=== PATIENT | female | born 1995 | race Caucasian/White ===

== ENCOUNTER 2024-04-22 16:36 | Emergency (ER) | payer OTHER, SELFPAY ==
[2024-04-22 17:06] VITALS: BP 128/80; PULSE 96; RESP 16; TEMP 36.6; O2SAT 100; BMI 38.1
--- NOTE | 2024-04-22 17:07 | ED.GENADULT ---
HPI - General Adult General Chief complaint: Upper Respiratory Symptoms Stated complaint: flu Time Seen by Provider: 04/22/24 18:42 Source: patient Mode of arrival: ambulatory Limitations: no limitations History of Present Illness ED Provider: verna NEGRETE narrative: Patient is a 28-year-old female presenting to the ED with 2 days of sore throat, cough, subjective fevers, body aches. is sick with similar symptoms. She denies chest or abdominal pain. Denies nausea, vomiting, diarrhea. MD complaint: body aches Onset (ago): day(s) Treatments prior to arrival: none Related Data Allergies Allergy/AdvReac Type Severity Reaction Status Date / Time No Known Allergies Allergy Verified 04/22/24 17:08 Review of Systems Review of Systems: as per HPI Yes all other systems are reviewed and are negative Constitutional: Constitutional: Reports as per HPI Physical Exam ED Vital Signs: Vital Signs - 24 hr 04/22/24 17:06 Temperature 98 F Pulse Rate 96 Respiratory Rate 16 Blood Pressure 128/80 Pulse Oximetry 100 Oxygen Delivery Method Room Air BMI result Body Mass Index 38.1 Vital signs have been reviewed and appear to be correct. Blood pressure normal. Heart rate normal. Respiratory rate normal. Temperature normal. Oxygen saturation normal. Const General: cooperative, healthy appearing and no acute distress Orientation/consciousness: oriented to person, oriented to place, oriented to time and patient oriented x3 Limitations: no limitations HENMT Head: Yes normocephalic and Yes atraumatic Ears: external ears normal General nose exam: Normal external nose present Face and sinus: Yes face symmetric Mouth: oropharynx normal and moist mucous membranes Throat: Yes uvula midline Eyes Pupils: Equal, round and reactive pupils present Neck Neck: Yes normal visual inspection and Yes supple Resp Effort & Inspection: normal respiratory effort and able to speak in complete sentences Auscultation: clear to auscultation bilaterally Cardio Rate: regular rate Rhythm: regular rhythm Heart sounds: S1 normal heart sound present and S2 normal heart sound present GI Palpation (GI): Soft to palpation and nontender Auscultation: normoactive bowel sounds General: Yes no CVA tenderness Back/Spine/Pelvis Back: no CVA tenderness Skin General skin exam: elasticity normal and turgor normal Neuro General: oriented to person, oriented to place, oriented to time, patient oriented x3, moves all extremities, no focal motor deficits and CN's II-XI intact bilaterally Cranial nerves: Yes Equal, round and reactive pupils present Cognition (Neuro): normal cognition Extrem General: Yes full ROM, Yes no pedal edema and Yes no calf tenderness Psych Mental Status: mental status grossly normal Affect: normal affect Thought process: Normal thought process present Medical Decision Making Medical Decision Making [facility] Narrative: Patient is a 28-year-old female presenting to the ED with 2 days of sore throat, cough, subjective fevers, body aches. On exam patient is awake, A+Ox3, VS WNL, afebrile, normal neurological exam without focal deficits, physical exam findings as above. Given reported symptoms and physical exam findings, initial differential includes viral illness, strep pharyngitis, COVID, flu, RSV. Viral and strep swabs negative. Patient updated on results. Discussed with patient that symptoms are likely due to viral illness. Recommended Tylenol and ibuprofen as needed, follow up with PCP. Return precautions discussed. Patient verbalized understanding of and agreement with plan. Differential Diagnosis Differential Diagnoses: The differential diagnosis associated with the presentation includes As per [facility] Lab Data [facility] Lab Attestation statement: I reviewed the patient's lab results. As per [facility] Labs: Lab Results 04/22/24 Range/Units 17:44 Influenza Type A (PCR) NEGATIVE (Negative) Influenza Type B (PCR) NEGATIVE (Negative) RSV RNA Qual (PCR) NEGATIVE (Negative) SARS-CoV-2 RNA (RT-PCR) NEGATIVE (Negative) S. pyogenes GrpA RODNEY Negative (Negative) External Record Review External record reviewed: Inpatient record, Office record and Outpatient record Discharge Plan Discharge Clinical Impression: Upper respiratory infection, viral Patient Disposition: Home, Self-Care Instructions: Viral Syndrome (ED), Upper Respiratory Infection (DC) Additional Instructions: You were evaluated in the emergency department today for sore throat and cough. Your Covid, flu, RSV, and strep tests were all negative. Your symptoms are likely related to a viral illness which will resolve on its own with time and rest. You should ensure adequate fluid intake, and can use Tylenol 650 mg or ibuprofen 600 mg every 6 hours as needed for fever or discomfort. Please follow-up with your primary care provider this week. Return to the emergency department if you develop chest pain, worsening shortness of breath, difficulty swallowing, fever 100.4? F or greater or any other concerning symptoms. Print Language: Divehi
[2024-04-22 18:13] LABS: IDNOW Serial# 08D9AD1C; Strep A Nucleic Acid Negative (Negative)
[2024-04-22 18:26] LABS: Influenza A PCR NEGATIVE (Negative); Influenza B PCR NEGATIVE (Negative); Resp Syncy Virus RNA Qual PCR NEGATIVE (Negative); SARS COV2 PCR INHOUSE NEGATIVE (Negative)
[2024-04-22 19:04] VITALS: BP 128/80; PULSE 96; RESP 16; TEMP 36.6; O2SAT 100
== END 2024-04-22 19:07 | disposition home or self-care (01) ==
LOC: HO.ED 19:06
PROVIDERS: Registered Nurse Emergency; Emergency Provider Emergency Medicine; PCP Internal Medicine
DX: J06.9 Acute upper respiratory infection, unspecified (principal); J02.9 Acute pharyngitis, unspecified; R05.9 Cough, unspecified; Z03.818 Encounter for observation for suspected exposure to other biological agents ruled out
CPT/HCPCS: 0241U; 87651; 99282; 99283

== ENCOUNTER 2024-04-28 07:16 | Outpatient (AMB) | payer OTHER, SELFPAY ==
[2024-04-28 07:43] VITALS: BP 116/80; BMI 36.9
--- NOTE | 2024-04-28 07:43 | MHC.PC.OV ---
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 Accompanied by: Spouse Allergies No Known Allergies Allergy (Verified 04/28/24 07:52) Medication List - Last Reconciled 04/28/24 by Aline Mackenzie MD famotidine (Pepcid) 20 mg PO DAILY Tobacco use date assessed: 04/28/24 Dental Screening Dental Screen Date: 04/28/24 Did you have a dental visit in the last 12 months?: Yes Did you have a dental problem in the last 6 months where you did not have access to dental care?: No Was dental information given to patient?: Patient has dentist HPI HPI Comments History of Present Illness Details This is a 28-year-old female with mild intermittent asthma, chronic GERD and obesity that comes to establish care accompanied by significant other. She has not use a rescue inhaler in over 3 years. GERD stable with famotidine. She is obese with a BMI of 36.9 and has tried diet and exercise with no significant relieved. I will start her on Wegovy if insurance approves. BMI goal is less than 30. [facility] Surgical History History of cholecystectomy Family History Mother No problems noted. Father No problems noted. Social History Housing: Apartment Alcohol intake: never Patient Tobacco Use Status: Never used Tobacco e-Cigarette/Vaping Use: Never Used Second Hand Smoke Exposure: No service: No Current occupational status: employed Current occupational exposures/hazards: No Cognitive needs: No Hearing needs: No Vision needs: Yes Questionnaire PHQ-9 Over the last 2 weeks, how often have you been bothered by any of the following problems? 1. Little interest or pleasure in doing things: not at all 2. Feeling down, depressed, or hopeless: not at all 3. Trouble falling or staying asleep, or sleeping too much: not at all 4. Feeling tired or having little energy: not at all 5. Poor appetite or overeating: not at all 6. Feeling bad about yourself - or that you are a failure or have let yourself or your family down: not at all 7. Trouble concentrating on things, such as reading the newspaper or watching television: not at all 8. Moving or speaking so slowly that other people could have noticed. Or the opposite - being so fidgety or restless that you have been moving around a lot more than usual: not at all 9. Thoughts that you would be better off or of hurting yourself in some way: not at all Total score: 0 Depression Screening Interpretation: Negative Depression Screening Done: Yes 05371 - PHQ-9 Billing: Yes Source: Developed by Drs. Antony Martin, Paulette Lopez, Jossue Ricks and colleagues, with an educational tomasa from [employer]. Thrive Questionnaire Date Thrive assessed: 04/28/24 I am a: Patient What is your living situation today?: I have a steady place to live Within the past 12 months, did the food you bought not last and you didn't have the money to get more?: Never true Within the past 12 months, did you worry whether your food would run out before you got money to buy more?: Never true Do you have trouble paying for medicines?: No Do you have trouble getting transportation to medical appointments?: No Do you have trouble paying your heating and electricity bill?: No Do you have trouble taking care of your child, family member or friend?: No Do you have trouble with day-to-day activities such as bathing, preparing meals, shopping, managing finances, etc.?: No Are you currently unemployed and looking for a job?: No Are you interested in more education?: No Please select the resources that you would like help with: None Currently or been in a relationship where the following occur: No concerns reported THRIVE Score: 0 AUDIT C Alcohol Use Questionnaire (AUDIT-C) 1. How often do you have a drink containing alcohol?: Never Total Score: 0 Score Reviewed/Action Taken: No JANICE-7 AMB Questionnaire JANICE-7 Date JANICE - 7 assessed: 04/28/24 Feeling nervous, anxious, or on edge: 1 = Several days Not being able to stop or control worryin = Not at all Worrying too much about different things: 2 = More than half the days Trouble relaxin = Not at all Being so restless that it is hard to sit still: 0 = Not at all Becoming easily annoyed or irritable: 1 = Several days Feeling afraid as if something awful might happen: 0 = Not at all Total JANICE-7 score (0-4 normal; 5-9 mild; 10-14 moderate; 15-21 severe): 4 Source: Developed by Drs. Antony Martin, Paulette Lopez, Jossue Ricks and colleagues, with an educational tomasa from [employer]. JANICE-7 Assessment Billing JANICE-7 Assessment Tool: JANICE-7 Assessment 70737 Review of Systems Const All systems reviewed & are unremarkable except as noted in HPI and below Card Denies chest pain at rest, Denies chest pain with activity, Denies edema, Denies irregular heart rhythm, Denies claudication, Denies dyspnea, Denies dyspnea on exertion, Denies orthopnea, Denies paroxysmal nocturnal dyspnea and Denies slow heart rate Resp Denies cough, Denies dyspnea and Denies dyspnea on exertion GI Denies abdominal pain, Denies change in bowel habits, Denies excessive flatus, Denies nausea and Denies vomiting Physical exam (Primary Care) Vital Signs: Last Vital Signs BP 116/80 04/28/24 07:43 BMI result Body Mass Index 36.9 Tobacco/Smoking Status: Tobacco use Status Tobacco use date assessed 04/28/24 04/28/24 07:51 Patient Tobacco Use Status Never used Tobacco 04/28/24 07:51 e-Cigarette/Vaping Use Never Used 04/28/24 07:51 PHQ-9: PHQ-9 Score PHQ-9: Total score 0 04/28/24 07:54 Depression Screening Interpretation: Negative Thrive Assessment: Date of Thrive Assessment Date Thrive assessed 04/28/24 04/28/24 07:51 Currently or been in a relationship where the following occur: No concerns reported Resp Effort & Inspection: normal respiratory effort Auscultation: clear to auscultation bilaterally Cardio Jugular venous distension: no JVD Rate: regular rate Rhythm: regular rhythm Heart sounds: S1 normal heart sound present and S2 normal heart sound present Extrem General: Yes full ROM Immunizations Boostrix Tdap 2.5 Lf unit-8 mcg-5 Lf/0.5 mL intramuscular syringe Performing Provider: Aline Mackenzie MD [facility] Administered by: TEX Gaffney on 04/28/24 08:10 Dose Route Admin Location Dispensed Lot Number Expiration Date NDC Director Broadcast 0.5 mL IM Left Deltoid 0.5 mL [id number] 06/10/26 35679-063-57 [employer] VIS Given Date VIS Provided VIS Publication Date 04/28/24 Single Vaccine 21 Eligibility Eligibility Date Funding Source Not [facility] Eligible 04/28/24 Private Assessment and Plan Assessment & Plan (1) Class 2 obesity with body mass index (BMI) of 36.0 to 36.9 in adult: Code(s): E66.9 - Obesity, unspecified; Z68.36 - Body mass index [BMI] 36.0-36.9, adult Plan: Start Wegovy. BMI goal is less than 30. (2) Chronic GERD: Code(s): K21.9 - Gastro-esophageal reflux disease without esophagitis Plan: Continue famotidine. (3) Mild intermittent asthma in adult without complication: Code(s): J45.20 - Mild intermittent asthma, uncomplicated Plan: Use rescue inhaler as needed. Orders: Orders Thyroid Stimulating Hormone Today E66.9 - Obesity, unspecified, Z68.36 - Body mass index [BMI] 36.0-36.9, adult Lipid Panel Today E66.9 - Obesity, unspecified, Z68.36 - Body mass index [BMI] 36.0-36.9, adult Comprehensive Panther. Panel Fast Today E66.9 - Obesity, unspecified, Z68.36 - Body mass index [BMI] 36.0-36.9, adult Complete Blood Count Auto Diff Today E66.9 - Obesity, unspecified, Z68.36 - Body mass index [BMI] 36.0-36.9, adult TDaP Immunization Today Z23 - Encounter for immunization Referrals DIRECTOR OF BUSINESS SYSTEMS Referral Z12.4 - Encounter for screening for malignant neoplasm of cervix Medications: New semaglutide (weight loss) (Wegovy) administer weeks 1 through 4 of therapy 0.25 mg (0.5 mL) subcut QWEEK 4 weeks 2 mL 0RF E66.9 - Obesity, unspecified, Z68.36 - Body mass index [BMI] 36.0-36.9, adult famotidine (Pepcid) 20 mg PO DAILY 90 days 90 tabs 1RF K21.9 - Gastro-esophageal reflux disease without esophagitis Ventolin HFA 90 mcg/actuation (albuterol sulfate) 2 puffs inhalation Q6H 30 days PRN 8 grams 1RF shortness of breath or wheezing NS J45.20 - Mild intermittent asthma, uncomplicated Coding Level of Care Code New Pt Level 3 (42395) Complex EM visit Add On G2211 Diagnoses Class 2 obesity with body mass index (BMI) of 36.0 to 36.9 in adult E66.9; Z68.36 Chronic GERD K21.9 Mild intermittent asthma in adult without complication J45.20 Additional Codes JANICE-7 Assessment Billing - JANICE-7 Assessment Tool: JANICE-7 Assessment 58257 ([id number]) Time Spent (min) 19
== END 2024-04-28 08:11 | disposition home or self-care (01) ==
PROVIDERS: PCP Internal Medicine; Visit Provider Internal Medicine
DX: K21.9 Gastro-esophageal reflux disease without esophagitis (principal); E66.9 Obesity, unspecified; Z68.36 Body mass index [BMI] 36.0-36.9, adult; Z23 Encounter for immunization; J45.20 Mild intermittent asthma, uncomplicated
CPT/HCPCS: 90471; 90715; 99203

== ENCOUNTER 2024-04-28 08:34 | Outpatient (REF) | payer OTHER, SELFPAY ==
[2024-04-28 08:46] LABS: MANUAL DIFF FLAG NO
[2024-04-28 09:28] LABS: Basophils Percent Auto 0.4 % (0-2); Eosinophils Absolute Auto 0.2 X10*3/uL (0.0-0.4); Hematocrit 45.2 % (37.0-47.0); Hemoglobin 15.4 g/dl (12.0-16.0); Imm Gran Abs Auto 0.04 X10*3/uL (0.00-0.03); Imm Gran Pct Auto 0.5 % (0.0-0.4); Lymphocytes Absolute Auto 2.6 X10*3/uL (1.2-4.9); Lymphocytes Percent Auto 32.7 % (20-40); Mean Corpuscular HGB Conc 34.1 g/dl (31.0-35.0); Mean Corpuscular Hemoglobin 30.3 pg (27.0-33.0); Mean Corpuscular Volume 88.8 fL (80.0-98.0); Mean Platelet Volume 10.4 fL (9.4-12.3); Monocytes Absolute Auto 0.8 X10*3/uL (0.1-1.2); Monocytes Percent Auto 9.6 % (2-11); Neutrophils Absolute Auto 4.4 x10*3/uL (2.0-8.3); Neutrophils Percent Auto 54.8 % (45-73); Platelet Count 276 X10*3/uL (160-400); Red Blood Count 5.09 X10*6/uL (4.20-5.50); Red Cell Distribution Width 12.3 % (11.0-16.0)
[2024-04-28 09:53] LABS: Alanine Aminotransferase 40 U/L (0-31); Albumin Level 4.6 g/dL (3.5-5.0); Alkaline Phosphatase 66 U/L (39-117); Anion Gap 10 (12-20); Aspartate Amino Transferase 24 U/L (5-31); Bilirubin Total 0.4 mg/dL (0.0-1.0); Blood Urea Nitrogen 12 mg/dL (9-16); Calcium 10.3 mg/dL (8.4-10.2); Carbon Dioxide 29 mmol/L (22-29); Chloride 105 mmol/L (96-108); Cholesterol 152 mg/dL (<200); Estimated Glomerular Filt Rate > 60; Glucose Fasting 92 mg/dL (60-99); HDL Cholesterol 45 mg/dL (>40); LDL Cholesterol Calculated 83 mg/dL (<100); Potassium 4.3 mmol/L (3.3-5.1); Sodium 140 mmol/L (135-145); Total Protein 7.8 g/dL (6.5-8.0); Triglycerides 124 mg/dL (<150)
[2024-04-28 10:09] LABS: Thyroid Stimulating Hormone 2.21 uIU/mL (0.32-4.0)
== END 2024-04-28 08:35 | disposition home or self-care (01) ==
LOC: HO.LAB 08:34
PROVIDERS: PCP Internal Medicine; Visit Provider Internal Medicine
DX: E66.9 Obesity, unspecified (principal); Z68.36 Body mass index [BMI] 36.0-36.9, adult
CPT/HCPCS: 36415; 80053; 80061; 84443; 85025

== ENCOUNTER 2025-01-12 15:54 | Outpatient (AMB) | payer BC, SELFPAY ==
--- NOTE | 2025-01-12 16:06 | MHC.PC.OV ---
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 by: Self / Same As Patient Allergies No Known Allergies Allergy (Verified 01/12/25 16:12) Medication List - Last Reconciled 01/12/25 by Aline Mackenzie MD No Known Home Meds Tobacco use date assessed: 01/12/25 Dental Screening Dental Screen Date: 01/12/25 Did you have a dental visit in the last 12 months?: Yes Did you have a dental problem in the last 6 months where you did not have access to dental care?: No Was dental information given to patient?: Patient has dentist HPI HPI Comments History of Present Illness Details The patient is a 29-year-old female presenting with a concern regarding her left foot. 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 It was described as being embedded in the bone, necessitating an excision where a portion was removed through creating a hole. Although initial relief was achieved, symptoms have continually recurred since July. She verified she has not consulted a specialist since enrolling in a new insurance plan as of September. The patient seeks evaluation due to the resurfacing of symptoms following the prior surgical intervention. - Tetanus vaccination administered last year; next dose due in 2023 - Discussion on the importance of regular exercise [facility] Surgical History (Updated 01/12/25 @ 16:16 by Aline Mackenzie MD) History of foot surgery History of cholecystectomy Family History Mother No problems noted. Father No problems noted. Social History Housing: Apartment Alcohol intake: never Patient Tobacco Use Status: Never used Tobacco e-Cigarette/Vaping Use: Never Used Second Hand Smoke Exposure: No service: No Current occupational status: employed Current occupational exposures/hazards: No Cognitive needs: No Hearing needs: No Vision needs: Yes Questionnaire PHQ-9 Over the last 2 weeks, how often have you been bothered by any of the following problems? 1. Little interest or pleasure in doing things: not at all 2. Feeling down, depressed, or hopeless: not at all 3. Trouble falling or staying asleep, or sleeping too much: not at all 4. Feeling tired or having little energy: not at all 5. Poor appetite or overeating: not at all 6. Feeling bad about yourself - or that you are a failure or have let yourself or your family down: not at all 7. Trouble concentrating on things, such as reading the newspaper or watching television: not at all 8. Moving or speaking so slowly that other people could have noticed. Or the opposite - being so fidgety or restless that you have been moving around a lot more than usual: not at all 9. Thoughts that you would be better off or of hurting yourself in some way: not at all Total score: 0 Depression Screening Interpretation: Negative Depression Screening Done: Yes 77173 - PHQ-9 Billing: Yes Source: Developed by Drs. Antony Martin, Paulette Lopez, Jossue Ricks and colleagues, with an educational tomasa from [employer]. Thrive Questionnaire Date Thrive assessed: 01/05/25 I am a: Patient What is your living situation today?: I have a steady place to live Within the past 12 months, did the food you bought not last and you didn't have the money to get more?: Often true Within the past 12 months, did you worry whether your food would run out before you got money to buy more?: Never true Do you have trouble paying for medicines?: I choose not to answer this question Do you have trouble getting transportation to medical appointments?: No Do you have trouble paying your heating and electricity bill?: No Do you have trouble taking care of your child, family member or friend?: No Do you have trouble with day-to-day activities such as bathing, preparing meals, shopping, managing finances, etc.?: No Are you currently unemployed and looking for a job?: No Are you interested in more education?: I choose not to answer this question Please select the resources that you would like help with: Paying for medicine Currently or been in a relationship where the following occur: No concerns reported THRIVE Score: 1 AUDIT C Alcohol Use Questionnaire (AUDIT-C) 1. How often do you have a drink containing alcohol?: Never Total Score: 0 Score Reviewed/Action Taken: No JANICE-7 AMB Questionnaire JANICE-7 Date JANICE - 7 assessed: 01/12/25 Feeling nervous, anxious, or on edge: 1 = Several days Not being able to stop or control worryin = Not at all Worrying too much about different things: 0 = Not at all Trouble relaxin = Not at all Being so restless that it is hard to sit still: 0 = Not at all Becoming easily annoyed or irritable: 0 = Not at all Feeling afraid as if something awful might happen: 0 = Not at all Total JANICE-7 score (0-4 normal; 5-9 mild; 10-14 moderate; 15-21 severe): 1 Source: Developed by Drs. Antony Martin, Paulette Lopez, Jossue Ricks and colleagues, with an educational tomasa from [employer]. JANICE-7 Assessment Billing JANICE-7 Assessment Tool: JANICE-7 Assessment 19461 Review of Systems Const All systems reviewed & are unremarkable except as noted in HPI and below Card Denies chest pain at rest, Denies chest pain with activity, Denies edema, Denies irregular heart rhythm, Denies claudication, Denies dyspnea, Denies dyspnea on exertion, Denies orthopnea, Denies paroxysmal nocturnal dyspnea and Denies slow heart rate Resp Denies cough, Denies dyspnea and Denies dyspnea on exertion GI Denies abdominal pain, Denies change in bowel habits, Denies excessive flatus, Denies nausea and Denies vomiting Denies urinary incontinence, Denies urinary hesitancy and Denies urinary urgency Musc Denies abnormal gait, Denies atrophy, Denies deformity and Denies limited range of motion Skin/Breast Denies bleeding lesions, Denies changing lesions and Denies rash Neuro Denies abnormal gait and Denies lack of coordination Physical exam (Primary Care) Vital Signs: Last Vital Signs BP 120/82 01/12/25 16:07 BMI result Body Mass Index 36.9 BMI Assessment/Plan discussion: High BMI High, discussed plan: lifestyle, weight reduction, dietary and physical activity Tobacco/Smoking Status: Tobacco use Status Tobacco use date assessed 01/12/25 01/12/25 16:10 Patient Tobacco Use Status Never used Tobacco 01/12/25 16:10 e-Cigarette/Vaping Use Never Used 01/12/25 16:10 PHQ-9: PHQ-9 Score PHQ-9: Total score 0 01/12/25 16:10 Depression Screening Interpretation: Negative Thrive Assessment: Date of Thrive Assessment Date Thrive assessed 01/05/25 01/12/25 16:10 Currently or been in a relationship where the following occur: No concerns reported [facility] Head: Yes normal to inspection, Yes normocephalic and Yes atraumatic Ears: external ears normal Eyes General: appearance normal, both eyes and all related structures Eyelids: Yes eyelids normal Conjunctivae: conjunctivae normal Neck Neck: Yes normal visual inspection and Yes supple Resp Effort & Inspection: normal respiratory effort Auscultation: clear to auscultation bilaterally Cardio Jugular venous distension: no JVD Rate: regular rate Rhythm: regular rhythm Heart sounds: S1 normal heart sound present and S2 normal heart sound present GI Inspection: Yes normal to inspection Palpation (GI): Soft to palpation and nontender Auscultation: normal bowel sounds Skin General skin exam: no rashes or lesions noted Neuro General: no focal motor deficits Extrem General: Yes full ROM Psych Appearance: grossly normal Coding Level of Care Code Est Pt Level 3 (43648) Est Pt Prev Care 18-39y(17290) Diagnoses Physical exam Z00.00 Left foot pain M79.672 Additional Codes PHQ-9 - 97148 - PHQ-9 Billing: Yes ([id number]) JANICE-7 Assessment Billing - JANICE-7 Assessment Tool: JANICE-7 Assessment 50332 ([id number]) Time Spent (min) 33 Assessment & Plan Assessment & Plan (1) Physical exam: Code(s): Z00.00 - Encounter for general adult medical examination without abnormal findings Category: Medical (2) Left foot pain: Code(s): M79.672 - Pain in left foot Category: Medical Plan The patient has been advised to see a agricultural agent for further evaluation of the left foot callus. Due to prior surgical intervention, reassessment is needed for potential more specialized care. I will assist in coordinating with the agricultural agent to schedule this follow-up appointment. As her last laboratory tests were normal, no additional tests are planned. Efforts to manage discomfort are ongoing until specialist consultation is complete. Patient was informed and verbally consented to the use of an ambient scribe for clinic note documentation during this visit. I explained to the patient the potential need for further intervention by a agricultural agent for sustained resolution of her recurrent foot issue. The previous surgery was discussed along with the possibility of recurrence requiring ongoing care. We reviewed the risks and benefits of specialist intervention and the importance of addressing the discomfort adequately. I outlined the absence of need for immediate labs given recent normal results. I encouraged exercise as part of health maintenance and highlighted the current vaccination status. It was agreed that visiting the specialist remains a priority, and her compliance with follow-up was affirmed. Orders: Referrals Podiatry Referral M79.672 - Pain in left foot Patient Instructions: - Schedule and attend an appointment with the agricultural agent for left foot evaluation - Continue regular exercise as part of health maintenance - Reach out if new symptoms or concerns develop - Reminder for follow-up vaccination in 2023
[2025-01-12 16:07] VITALS: BP 120/82; BMI 36.9
== END 2025-01-12 16:26 | disposition home or self-care (01) ==
LOC: HO.HMCH 15:54
PROVIDERS: PCP Internal Medicine; Visit Provider Internal Medicine
DX: Z00.00 Encounter for general adult medical examination without abnormal findings (principal); M79.672 Pain in left foot

== ENCOUNTER → 2025-01-12 15:54 | Outpatient (BNVA) | payer BC, SELFPAY | PROVIDERS: PCP Internal Medicine; Visit Provider Internal Medicine | DX: Z00.00 Encounter for general adult medical examination without abnormal findings (principal); M79.672 Pain in left foot; L84 Corns and callosities | CPT/HCPCS: 96127 ==

== ENCOUNTER 2025-08-03 09:13 | Outpatient (REF) | payer BC, SELFPAY ==
[2025-08-03 12:59] LABS: HBsAGNum1 0.35 S/CO (0.00-0.99); HIV Num 1 0.05 S/CO (0.00-0.99); Hepatitis B Surface Antigen Negative (Negative); Thyroid Stimulating Hormone 1.47 uIU/mL (0.32-4.0); ~HepC Num1 0.07 S/CO (0.00-0.79); ~Hepatitis C Antibody Nonreactive (Nonreactive)
[2025-08-04 05:50] LABS: Follicle Stimulating Hormone 6.5 mIU/mL
[2025-08-04 10:48] LABS: Syphilis Screen Nonreactive (Nonreactive)
[2025-08-08 11:48] LABS: Testosterone, Free 6.4 pg/mL (0.1-6.4)
== END 2025-08-03 09:14 | disposition home or self-care (01) ==
LOC: HO.HHCL 09:13
PROVIDERS: PCP Internal Medicine; Visit Provider Advanced Practice Midwife
DX: Z12.4 Encounter for screening for malignant neoplasm of cervix (principal); Z20.2 Contact with and (suspected) exposure to infections with a predominantly sexual mode of transmission; E66.9 Obesity, unspecified; N92.6 Irregular menstruation, unspecified; Z11.59 Encounter for screening for other viral diseases; Z11.4 Encounter for screening for human immunodeficiency virus [HIV]; Z87.718 Personal history of other specified (corrected) congenital malformations of genitourinary system; Z68.36 Body mass index [BMI] 36.0-36.9, adult; Z87.42 Personal history of other diseases of the female genital tract
CPT/HCPCS: 36415; 82627; 82947; 83001; 83002; 84146; 84402; 84403; 84443; 86780; 86803; 87340; 87389

== ENCOUNTER 2025-08-03 09:13 | Outpatient (AMB) | payer BC, SELFPAY ==
--- NOTE | 2025-08-03 09:13 | MHC.OFFVIS ---
Vital Signs 08/03/25 09:21 Height 5 ft 4 in Weight 215 lb BMI 36.9 BP 110/60 Intake Visit Reasons: New patient Annual/Internal Intake Note: Last pap smear 2 years ago in [place], normal hx. Last menstrual 2 years ago, occasional spotting. 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 She used to get her customer engineering specialist care when she lived in [place]. She is 29 years old she has been trying to get with no success. 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 She was told that if she does get that she has a high-risk of having a premature baby and there is also risk of miscarriages and also a possibility of a . Since she left [place] she has not been on the control pills and she has not gotten a period in 2 years. In this period of time she has also gained weight she probably was about 190 at her lowest before she left [place] and she recently was as high as 220 and now she is 215.. 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 She is sexually active she would like to get she knows that it is not good to go a long period of time without menses and she is open to taking a medication to help bring on her menses and then go back on the control pills and thought that that would be something we would talk about today. She has no history of contraindications the pills and she took them with no difficulty in the past she is normotensive and she does not smoke. she has no history of migraines with auras, history of clotting abnormalities She says she has been screened and she does not have diabetes or any other health problems She did however have some surgery on her foot a couple of years ago and then she had gallbladder surgery and she was not able to eat after the surgery and then when she recovered and felt better she started eating a lot more and that is when she started gaining all the weight. She knows that being overweight effects menses as well.. PFSH Surgical History (Updated 01/12/25 @ 16:16 by Aline Mackenzie MD) History of foot surgery History of cholecystectomy Family History (Updated 08/03/25 @ 09:18 by Anca Cordon MA) Mother No problems noted. Father No problems noted. Paternal Grandfather Colon cancer Social History Housing: Apartment Alcohol intake: never Patient Tobacco Use Status: Never used Tobacco e-Cigarette/Vaping Use: Never Used Second Hand Smoke Exposure: No service: No Current occupational status: employed Current occupational exposures/hazards: No Cognitive needs: No Hearing needs: No Vision needs: Yes Female Reproductive History Menstrual Age of Menarche: 16 control method: none Total pregnancies: 0 History of abnormal pap smear: No Physical Exam Vital Signs: Last Vital Signs BP 110/60 08/03/25 09:21 BMI result Body Mass Index 36.9 Const General: healthy appearing, comfortable, no acute distress, well developed and alert Nutritional Appearance: average body habitus Orientation/consciousness: patient oriented x3 Limitations: no limitations HEENT Head: Yes normocephalic Neck Neck: Yes normal visual inspection Chest Chest palpation & inspection: normal inspection of the chest Breast/axilla inspection: normal inspection of the breasts and normal inspection of the axillae Breast/axilla palpation: normal palpation of the breasts and normal palpation of the axillae Resp Effort & Inspection: normal respiratory effort GI Inspection: Yes normal to inspection, No Abdominal wall edema and No distended Palpation (GI): Soft to palpation and nontender Other: External exam within normal limits vagina pink and moist cervix is nulliparous pink smooth slightly reddened that os normal clear scant mucus uterus small midposition mobile nontender adnexa nontender no tenderness or enlargement palpable. Good tone with Kegel General: Yes bladder normal to palpation External Female Exam: normal external appearance and normal appearance of the urethra Speculum Exam - Vagina: normal appearance of the vagina, normal palpation and normal vaginal discharge Speculum Exam - Cervix: normal appearance of the cervix, normal palpation and nontender Bimanual exam- vagina & uterus: normal bimanual exam, normal palpation, uterine size normal, bladder normal to palpation, consistency normal, normal palpation, uterine mobility normal, uterine shape normal, No Cervical tenderness present, non-tender and no cervical motion tenderness Bimanual Exam- Adnexa, other: normal adnexae, no masses, normal and No adnexal tenderness Neuro General: patient oriented x3 Assessment & Plan Assessment & Plan (1) Class 2 obesity with body mass index (BMI) of 36.0 to 36.9 in adult: Code(s): E66.9 - Obesity, unspecified; Z68.36 - Body mass index [BMI] 36.0-36.9, adult Category: Medical (2) Screening for cervical cancer: Code(s): Z12.4 - Encounter for screening for malignant neoplasm of cervix Category: Medical (3) History of amenorrhea: Code(s): Z87.42 - Personal history of other diseases of the female genital tract Category: Medical (4) History of bicornuate uterus: Code(s): Z87.718 - Personal history of other specified (corrected) congenital malformations of genitourinary system Category: Medical (5) Screen for sexually transmitted diseases: Code(s): Z11.3 - Encounter for screening for infections with a predominantly sexual mode of transmission Category: Medical (6) History of infertility, female: Code(s): Z87.42 - Personal history of other diseases of the female genital tract Category: Medical Plan -----Discussed in this visit the following: healthy balanced diet, regular and consistent exercise, getting recommended health screens, doing the best she can for her particular health concerns, kegel exercises, pap smear screening and followup recommendations, mammography screening and SBE, normal changes in cycles in her life stage--- . ---Discussed PCOS, similar situations involving amenorrhea and infertility and being overweight, in general and specifically about the interplay of the abnormal hormonal milieu related to being overweight, with the elevations of many hormone levels, including testosterone and estrogen, as well as others that contribute to cycles that are anovulatory and therefore prolonged, and when periods do come they come very heavy, and can contribute to lots of cramping, with passage of clots and anemia. Discussed the common symptoms related to the elvated hormonal levels, including increased facial hair, male pattern hair thinning, acne, and increased central abdominal girth. Discussed the interplay with difficulty getting when desired, but still possible, and therefore the need to contracept as appropriate and when needed. Discussed the role of weight loss as the primary, most important, and most likely to succeed, intervention, in achieving healthier status as regards amenorrhea and infertility and ovulatory regular cycles. Additionally the very important relationship to elevated insulin levels, and blood sugars, and high risk of pre diabetes, progressing to diabetes as well as other metabolic syndromes related to this was discussed. Also discussed common interventions for some of the above, including if appropriate, use of oral contraceptives, and provera. We made a plan that she agreed to today to help have her get a period/withdrawal bleed with the use of 10 days of Provera. I told her to expect a very heavy menses after that and she said that she was used to that it had happened before. When the menstrualperiod after the Provera is starting to slow down that would be the best time to start the control pills I reviewed with her taking out the day of the week strip from the package and choosing the correct 1 to apply to her package so she will be kept straight from then on. We will see her in about 3 months to see how she did with the withdrawal bleed and the menses and double check her blood pressure and we will also review her labs and ultrasound at that time. In the meantime if she is able to get the results of her hysteroscopy from the place she was seen in [place] that would be really helpful. Also reviewed that we do not have a birthing center here that if she ever does become she would by definition be high-risk and require the specialty services of Maternal- Medicine at [facility] and would want to seek care with them from the very start if not before hand and I did review again some of the risks that due occur with bicornuate uterus and the risk of miscarriage and . She says she is aware and we just reviewed everything In the meantime I discussed the challenges of weight gain and that being overweight can have a very large influence on her body's own cycles and ovulation and fertility and I recommend that while she use this time of being on the control pills to really work on trying to lose weight and then this is a very good age to make the changes she wants to make to achieve healthier status. She has not eaten today so she is going to go and get all of her lab work done fasting today. Orders: Orders US pelvic and transvaginal Today E66.9 - Obesity, unspecified, Z11.3 - Encounter for screening for infections with a predominantly sexual mode of transmission, Z12.4 - Encounter for screening for malignant neoplasm of cervix, Z68.36 - Body mass index [BMI] 36.0-36.9, adult, Z87.42 - Personal history of other diseases of the female genital tract, Z87.718 - Personal history of other specified (corrected) congenital malformations of genitourinary system Hepatitis B Surface Antigen Today E66.9 - Obesity, unspecified, Z12.4 - Encounter for screening for malignant neoplasm of cervix, Z68.36 - Body mass index [BMI] 36.0-36.9, adult, Z87.42 - Personal history of other diseases of the female genital tract, Z87.718 - Personal history of other specified (corrected) congenital malformations of genitourinary system HIV Ab/Ag Today E66.9 - Obesity, unspecified, Z12.4 - Encounter for screening for malignant neoplasm of cervix, Z68.36 - Body mass index [BMI] 36.0-36.9, adult, Z87.42 - Personal history of other diseases of the female genital tract, Z87.718 - Personal history of other specified (corrected) congenital malformations of genitourinary system Lutenizing Hormone Today E66.9 - Obesity, unspecified, Z12.4 - Encounter for screening for malignant neoplasm of cervix, Z68.36 - Body mass index [BMI] 36.0-36.9, adult, Z87.42 - Personal history of other diseases of the female genital tract, Z87.718 - Personal history of other specified (corrected) congenital malformations of genitourinary system Follicle Stimulating Hormone Today E66.9 - Obesity, unspecified, Z12.4 - Encounter for screening for malignant neoplasm of cervix, Z68.36 - Body mass index [BMI] 36.0-36.9, adult, Z87.42 - Personal history of other diseases of the female genital tract, Z87.718 - Personal history of other specified (corrected) congenital malformations of genitourinary system Prolactin Today E66.9 - Obesity, unspecified, Z12.4 - Encounter for screening for malignant neoplasm of cervix, Z68.36 - Body mass index [BMI] 36.0-36.9, adult, Z87.42 - Personal history of other diseases of the female genital tract, Z87.718 - Personal history of other specified (corrected) congenital malformations of genitourinary system Glucose Fasting Today E66.9 - Obesity, unspecified, Z12.4 - Encounter for screening for malignant neoplasm of cervix, Z68.36 - Body mass index [BMI] 36.0-36.9, adult, Z87.42 - Personal history of other diseases of the female genital tract, Z87.718 - Personal history of other specified (corrected) congenital malformations of genitourinary system Syphilis Screen Today E66.9 - Obesity, unspecified, Z12.4 - Encounter for screening for malignant neoplasm of cervix, Z68.36 - Body mass index [BMI] 36.0-36.9, adult, Z87.42 - Personal history of other diseases of the female genital tract, Z87.718 - Personal history of other specified (corrected) congenital malformations of genitourinary system Testosterone, Free/Total Today E66.9 - Obesity, unspecified, N92.6 - Irregular menstruation, unspecified, Z12.4 - Encounter for screening for malignant neoplasm of cervix, Z68.36 - Body mass index [BMI] 36.0-36.9, adult, Z87.42 - Personal history of other diseases of the female genital tract, Z87.718 - Personal history of other specified (corrected) congenital malformations of genitourinary system Thyroid Stimulating Hormone Today E66.9 - Obesity, unspecified, Z12.4 - Encounter for screening for malignant neoplasm of cervix, Z68.36 - Body mass index [BMI] 36.0-36.9, adult, Z87.42 - Personal history of other diseases of the female genital tract, Z87.718 - Personal history of other specified (corrected) congenital malformations of genitourinary system Hepatitis C Antibody Today E66.9 - Obesity, unspecified, Z12.4 - Encounter for screening for malignant neoplasm of cervix, Z68.36 - Body mass index [BMI] 36.0-36.9, adult, Z87.42 - Personal history of other diseases of the female genital tract, Z87.718 - Personal history of other specified (corrected) congenital malformations of genitourinary system DHEA Sulfate Today E66.9 - Obesity, unspecified, Z12.4 - Encounter for screening for malignant neoplasm of cervix, Z68.36 - Body mass index [BMI] 36.0-36.9, adult, Z87.42 - Personal history of other diseases of the female genital tract, Z87.718 - Personal history of other specified (corrected) congenital malformations of genitourinary system Medications: New medroxyprogesterone (Provera) Take 1 tablet a day for 10 days at a time of your choosing, expect menses afterwards. 10 mg PO DAILY 10 tabs 0RF desog-e.estradiol/e.estradiol 0.15-0.02 mgx21 /0.01 mg x 5 Start OCPs when withdrawal bleed(menses)(after the Provera challenge), is slowing down. 1 tab PO DAILY 84 tabs 4RF Coding Level of Care Code New Pt Prev Care 18-39yr([id number] Diagnoses Class 2 obesity with body mass index (BMI) of 36.0 to 36.9 in adult E66.9; Z68.36 Screening for cervical cancer Z12.4 History of amenorrhea Z87.42 History of bicornuate uterus Z87.718 Screen for sexually transmitted diseases Z11.3 History of infertility, female Z87.42 Time Spent (min) 60 Comment 100% spent managing her complex history and making a plan...
[2025-08-03 09:21] VITALS: BP 110/60; BMI 36.9
--- OUTSIDE RECORDS SUMMARY | 2025-08-03 09:57 | XMS_ITS | Clinical Summary ---
Author Organization [address] [facility] Address [address] [place] [address] Phone Care Team Providers Care Interviewing Clerk Name Role Phone Aline Mackenzie MD Primary Care Provider [phone] Medications ammonium lactate (AmLactin) 12 % lotion Apply topically if needed for dry skin. 400 g 5 04/13/20 26 Active Social History Tobacco Use Types Packs/Day Years Used Date Smoking Tobacco: Never Assessed Comments Unknown Sex and Gender Information Value Date Recorded Sex Assigned at Not on file Legal Sex Female 10:40 AM EDT Gender Identity Not on file Sexual Orientation Not on file Plan of Treatment Health Maintenance Due Date Last Done Comments Hepatitis B Vaccines (1 of 3 - 19+ 3-dose series) 2015 Cervical Cancer Screening: P ap Smear 2017 HPV Vaccines (1 - 3-dose SCD M series) 2023 Depression Screening 09/30/2024 HIV Screening 02/03/2025 Hepatitis C Screening 02/03/2025 Social Influencers of Health Screening 02/03/2025 COVID-19 Vaccine ( - 2023-2 5 season) 2025 Influenza Vaccine (#1) 2025 DTaP,Tdap,and Td Vaccines (2 - Td or Tdap) 04/28/2034 04/28/2024 RSV Immunization Adult Patie nts (1 - 1-dose 75+ series) 2071 HIB Vaccines Aged Out No longer eligi ble based on patient's age to complete this topic Hepatitis A Vaccines Aged Out No long er eligible based on patient's age to complete this topic IPV Vaccines Aged Out No longer eligi ble based on patient's age to complete this topic MMR Vaccines Aged Out No longer eligi ble based on patient's age to complete this topic Meningococcal ACWY Vaccine Aged Out N o longer eligible based on patient's age to complete this topic Meningococcal B Vaccine Aged Out No l onger eligible based on patient's age to complete this topic Pneumococcal Vaccine: Pediat rics (0 to 5 Years) and At-Risk Patients (6 to 49 Years) Aged Out No longer eligi ble based on patient's age to complete this topic RSV Immunization Patients Un pauline 20 months Aged Out No longer eligible b ased on patient's age to complete this topic Varicella Vaccines Aged Out No longer eligible based on patient's age to complete this topic Insurance [facility] Laura [place] [address] [facility] Care Teams Interviewing Clerk Relationship Specialty Start Date End Date Aline Mackenzie MD [address] [place] [address] , [address] [facility] D/B/A: Blake Kamins[facility]iat[facility] [place] PCP - General Internal Medicine 02/03/25
== END 2025-08-03 14:30 | disposition home or self-care (01) ==
LOC: HO.HWSM 09:13
PROVIDERS: PCP Internal Medicine; Visit Provider Advanced Practice Midwife
DX: Z01.419 Encounter for gynecological examination (general) (routine) without abnormal findings (principal); E66.9 Obesity, unspecified; Z68.36 Body mass index [BMI] 36.0-36.9, adult; Z87.42 Personal history of other diseases of the female genital tract; Z87.718 Personal history of other specified (corrected) congenital malformations of genitourinary system; Z11.3 Encounter for screening for infections with a predominantly sexual mode of transmission
CPT/HCPCS: 99385; 99459

== ENCOUNTER 2025-08-03 11:01 | Outpatient (REF) | payer BC, SELFPAY | END 2025-08-03 11:02 | disposition home or self-care (01) | LOC: HO.LAB 11:01 | PROVIDERS: Visit Provider Advanced Practice Midwife | DX: Z13.89 Encounter for screening for other disorder (principal) ==

== ENCOUNTER 2025-08-03 11:01 | Outpatient (REF) | payer BC, SELFPAY ==
[2025-08-05 15:13] LABS: Bacterial Vaginosis PCR NEGATIVE (Negative); Candida Group PCR NOT DETECTED (Not Detect); Candida glab krusei PCR NOT DETECTED (Not Detect); Trichomonas vaginalis PCR NOT DETECTED (Not Detect)
[2025-08-05 15:39] LABS: CT PCR NOT DETECTED (Not Detect.); NG PCR NOT DETECTED (Not Detect.)
== END 2025-08-03 11:02 | disposition home or self-care (01) ==
LOC: HO.LNP 11:01
PROVIDERS: Visit Provider Advanced Practice Midwife
DX: Z12.4 Encounter for screening for malignant neoplasm of cervix (principal); Z20.2 Contact with and (suspected) exposure to infections with a predominantly sexual mode of transmission
CPT/HCPCS: 81515; 87491; 87591; 88175